=== PATIENT | male | born 1935 | race Caucasian/White ===

== ENCOUNTER 2021-07-19 12:40 | Emergency (ER) | payer MEDICARE ==
[~2021-07-19] VITALS: Ht 182.9 cm; Wt 72.7 kg
[2021-07-19 13:12] VITALS: BP 146/73
[2021-07-19] MEDS ORDERED: HYDROcodone/acetaminophen 10/325mg tab PO ONE (13:25)
== END 2021-07-19 14:50 | disposition home or self-care (01) ==
LOC: ER 12:42
DX: M54.2 Cervicalgia (principal); I10 Essential (primary) hypertension; Z85.9 Personal history of malignant neoplasm, unspecified; Z88.0 Allergy status to penicillin; Z88.6 Allergy status to analgesic agent
CPT/HCPCS: 70450; 72125; 72128; 99285

== ENCOUNTER 2023-04-06 14:14 | Emergency (ER) | payer MEDICARE ==
[~2023-04-06] VITALS: Ht 182.9 cm; Wt 70.5 kg
[2023-04-06] MEDS ORDERED: proCHLORperazine 10mg tablet PO ONE (17:45)
[2023-04-06] MEDS ORDERED: dexamethasone 4mg/ml inj IM ONE (17:45)
[2023-04-06 17:46] VITALS: BP 133/63
[2023-04-06] MEDS ORDERED: morphine 4 MG/ML inj SYRINge IM ONE (19:20)
== END 2023-04-06 19:41 | disposition home or self-care (01) ==
LOC: ER 14:15
DX: G43.909 Migraine, unspecified, not intractable, without status migrainosus (principal); Z20.822 Contact with and (suspected) exposure to COVID-19; J02.9 Acute pharyngitis, unspecified; I10 Essential (primary) hypertension; Z88.0 Allergy status to penicillin; Z88.6 Allergy status to analgesic agent; Z91.041 Radiographic dye allergy status
CPT/HCPCS: 87081; 87811; 87880; 96372; 99284; J1100; J2270; Q0164